=== PATIENT | male | born 1970 | race Caucasian/White ===

== ENCOUNTER 2017-09-04 10:16 | Emergency (ER) | payer SELFPAY ==
[2017-09-04 10:35] VITALS: BP 124/94; PULSE 77; TEMP 98.1; BMI 25.6
[2017-09-04] MEDS ORDERED: MAG HYDROX/AL HYDROX/SIMETH 30 ML UNIT-DOSE CUP PO ONE (11:07)
[2017-09-04] MEDS ORDERED: PANTOPRAZOLE SODIUM 40 MG in SODIUM CHLORIDE 100 ML IVPB ONE (11:07)
[2017-09-04] MEDS ORDERED: PANTOPRAZOLE SODIUM 100 ML IVPB ONE (11:33)
[2017-09-04] MEDS ORDERED: MAG HYDROX/AL HYDROX/SIMETH 30 ML UNIT-DOSE CUP ONE ×2 (11:33)
--- NOTE | 2017-09-04 11:38 | PDOC ---
History of Present Illness - General Chief Complaint: Pain, Acute Stated Complaint: CHEST PAIN, ABD PAIN Time Seen by Provider: 09/04/17 10:46 - History of Present Illness Initial Comments: 09/04/17 11:34 "The patient is a 47 year old male, with a significant past medical history of chronic back pain, who presents to the emergency department with abdominal pain for the past several years that worsened over the past few days. He notes that he noticed that he ate spicy food for 3 consecutive days, which triggered the exacerbation. He describes his pain as ranging from mild to moderate, localized to the RUQ, without radiation or modifying factors. Denies F/C. States that the pain is exactly the same as the pain he has had for years, but it is slightly more severe. He has seen his GI doctor about this pain and was treated for H pylori several years ago with no relief. He also reports that he has had an endoscopy and colonoscopy in the past that he was told were normal. He states that he last saw his GI specialist 2 weeks ago. He also states that he has been taking antacids during this time frame which has been helping mildly. The patient denies chest pain, shortness of breath, headache and dizziness. Denies fever, chills, nausea, vomit, diarrhea and constipation. Denies dysuria, frequency, urgency and hematuria. Chart review shows that pt had endoscopy in 2013 that was normal other than some erythema in antrum. Biopsy report showed chronic gastritis. Allergies: None Past surgical history: Back surgery Social history: No alcohol, tobacco or drug use reported Past History - Past Medical History Allergies/Adverse Reactions: Allergies Allergy/AdvReac Type Severity Reaction Status Date / Time No Known Allergies Allergy Verified 09/04/17 10:26 Home Medications: Ambulatory Orders NK [No Known Home Medication] 09/04/17 Anemia: No Asthma: No Cancer: No Cardiac Disorders: No CVA: No COPD: No CHF: No Dementia: No Diabetes: No GI Disorders: Yes (RECTAL BLEEDING, ABD. PAIN) Disorders: No HTN: No Hypercholesterolemia: No Liver Disease: No Seizures: No Thyroid Disease: No - Surgical History Abdominal Surgery: No Appendectomy: No Cardiac Surgery: No Cholecystectomy: No Lung Surgery: No Neurologic Surgery: Yes (BACK/PLATES& SCREWS) Orthopedic Surgery: No - Suicide/Smoking/Psychosocial Hx Smoking History: Former smoker Have you smoked in the past 12 months: Yes If you are a former smoker, when did you quit?: 2017 Information on smoking cessation initiated: Yes 'Breaking Loose' booklet given: 09/04/17 Hx Alcohol Use: No Drug/Substance Use Hx: No Substance Use Type: Marijuana Review of Systems - Review of Systems Comments:: 09/04/17 11:37 "GENERAL/CONSTITUTIONAL: No fever or chills. No weakness. HEAD, EYES, EARS, NOSE AND THROAT: No change in vision. No ear pain or discharge. No sore throat. CARDIOVASCULAR: No chest pain or shortness of breath. RESPIRATORY: No cough, wheezing, or hemoptysis. GASTROINTESTINAL: (+) Abdomial pain. No nausea, vomiting, diarrhea or constipation. GENITOURINARY: No dysuria, frequency, or change in urination. MUSCULOSKELETAL: No joint or muscle swelling or pain. No neck or back pain. SKIN: No rash NEUROLOGIC: No headache, vertigo, loss of consciousness, or change in strength/ sensation. ENDOCRINE: No increased thirst. No abnormal weight change. HEMATOLOGIC/LYMPHATIC: No anemia, easy bleeding, or history of blood clots. ALLERGIC/IMMUNOLOGIC: No hives or skin allergy. " *Physical Exam - Vital Signs Last Vital Signs Temp Pulse Resp BP Pulse Ox 98.1 F 77 16 124/94 100 09/04/17 10:27 09/04/17 10:27 09/04/17 10:27 09/04/17 10:27 09/04/17 10:27 - Physical Exam Comments: 09/04/17 11:37 "GENERAL: Awake, alert, and fully oriented, in no acute distress HEAD: No signs of trauma EYES: PERRLA, EOMI, sclera anicteric, conjunctiva clear ENT: Auricles normal inspection, hearing grossly normal, nares patent, oropharynx clear without exudates. Moist mucosa NECK: Nontender, no stepoffs, Normal ROM, supple, no lymphadenopathy, JVD, or masses LUNGS: Breath sounds equal, clear to auscultation bilaterally. No wheezes, and no crackles HEART: Regular rate and rhythm, normal S1 and S2, no murmurs, rubs or gallops ABDOMEN: Mild epigastric and RUQ tenderness. No guarding, no rebound. No masses EXTREMITIES: Normal range of motion, no edema. No clubbing or cyanosis. No cords, erythema, or tenderness NEUROLOGICAL: Cranial nerves II through XII intact. 5/5 strength and sensation in all extremities, Normal speech, normal gait SKIN: Warm, Dry, normal turgor, no rashes or lesions noted. " ED Treatment Course - LABORATORY CBC & Chemistry Diagram: 09/04/17 11:20 09/04/17 11:25 - RADIOLOGY Radiology Studies Ordered: Category Date Time Status ABDOMEN US [US] Stat Ultrasound 09/04/17 11:06 Ordered Medical Decision Making - Medical Decision Making 09/04/17 11:37 47 M with acute on chronic abdominal pain. Likely gastritis based on EGD biopsy report from 2013. However, given RUQ tenderness, will obtain US to r/o gallbladder pathology. Pt otherwise very well appearing, tolerating PO. Suspicion for acute intraabdominal process is very low. - Labs, UA - RUQ sono - GI cocktail 09/04/17 13:56 US negative. Labs wnl. Pt reassessed - feels significantly better s/p meds. Now with no abdominal pain. nontender abdomen. Clinically well appearing, vitals normal. Stable for DC at this time. *DC/Admit/Observation/Transfer Diagnosis at time of Disposition: Gastritis - Discharge Dispostion Disposition: HOME - Referrals Referrals: Anshul Gimenez MD [Primary Care Provider] - Kirk Gil MD [Staff Physician] - - Patient Instructions Printed Discharge Instructions: DI for Gastritis Additional Instructions: Follow up with your GI doctor, Dr. Gil, to have your abdominal pain further evaluated. You may need another endoscopy. Take nexium once daily. Avoid spicy or fatty foods which may worsen your pain. If you experience worsening pain, fevers, vomiting, or any other concerning symptoms, return to the ER immediately. - Attestations Physician Attestion: 09/04/17 14:00 Dr. Torrey Patterson MD, attest that this document has been prepared under my direction and personally reviewed by me in its entirety. I further attest, that it accurately reflects all work, treatment, procedures and medical decision -making performed by me.
[2017-09-04 11:39] LABS: BASOPHIL 0.7 % (0-2.0); EOSINOPHIL 13.2 % (0-4.5); MCH 30.6 pg (25.7-33.7); MEAN CELL VOLUME 87.4 fl (80-96); MEAN PLT VOLUME 8.4 fl (7.5-11.1); NEUTROPHILS 51.1 % (42.8-82.8); PLATELET COUNT 292 K/MM3 (134-434); RDW 13.4 % (11.9-15.9); WHITE BLOOD COUNT 7.4 K/mm3 (4.0-10.0)
[2017-09-04 11:56] LABS: INR 1.12 (0.82-1.09); PROTHROMBIN TIME (PATIENT) 12.7 SEC (9.98-11.88)
[2017-09-04 11:58] LABS: ACTIVATED PTT 35.8 SECONDS (26.9-34.4)
[2017-09-04 12:06] LABS: ALBUMIN 4.1 g/dl (3.4-5.0); ALK PHOS 87 U/L (45-117); ANION GAP 7 (8-16); BILIRUBIN,TOTAL 0.8 mg/dL (0.2-1.0); CALCIUM 8.7 mg/dL (8.5-10.1); CO2 27 mmol/L (21-32); CREATININE 0.8 mg/dL (0.7-1.3); GLUCOSE,RANDOM 113 mg/dL (74-106); SGOT/AST 15 U/L (15-37); SGPT/ALT 23 U/L (12-78); TOT PROT 7.9 g/dl (6.4-8.2)
[2017-09-04 12:51] LABS: CPK 151 IU/L (39-308); TROPONIN I < 0.02 ng/ml (0.00-0.05)
--- NOTE | 2017-09-06 11:40 | EKG ---
Test Reason : Blood Pressure : / mmHG Vent. Rate : 070 BPM Atrial Rate : 070 BPM P-R Int : 144 ms QRS Dur : 086 ms QT Int : 388 ms P-R-T Axes : 046 031 028 degrees QTc Int : 419 ms NORMAL SINUS RHYTHM NORMAL ECG NO PREVIOUS ECGS AVAILABLE CLINICAL CORRELATION IS RECOMMENDED Confirmed by BETTY MENDEZ MD ([id number]) on 09/06/2017 11:40:03 AM Referred By: Confirmed By:BETTY MENDEZ MD
== END 2017-09-04 14:21 | disposition home or self-care (01) ==
LOC: JER 10:16
PROC: 3E033GC Introduction of Other Therapeutic Substance into Peripheral Vein, Percutaneous Approach (ICD-10-PCS; principal; 2017-09-04)
DX: K29.70 Gastritis, unspecified, without bleeding (principal)
CPT/HCPCS: 36415; 76705-TC; 80053; 82550; 82553; 83690; 84484; 85025; 85610; 85730; 93005; 93010; 99282-25